=== PATIENT | female | born 1995 | race Caucasian/White ===

== ENCOUNTER 2018-10-27 15:19 | Emergency (ER) | payer MEDICAID ==
[~2018-10-27] VITALS: Ht 160 cm; Wt 57.2 kg
[2018-10-27 15:37] VITALS: Ht 160 cm; Wt 57.2 kg
--- NOTE | 2018-10-27 17:39 | ERD ---
ER Documentation Chief Complaint Chief Complaint c/o vomiting x1 dys, t. is 8 weeks HPI 23-year-old female at approximately 8 weeks by LMP 10/08/18, presents to the emergency department, complaining of 1 day with nausea and vomiting x associated with pelvic pain. The patient denies vaginal bleeding, no urinary symptoms. The patient established care at [facility]. ROS All systems reviewed and are negative except as per history of present illness. Medications Home Meds Active Scripts Acetaminophen* (Tylenol*) 325 Mg Tablet, 2 TAB PO Q8 PRN for PAIN AND OR ELEVATED TEMP, #20 TAB Prov:DHRUV CORTEZ MD 10/27/18 Metoclopramide* (Reglan*) 10 Mg Tablet, 10 MG PO TID PRN for NAUSEA AND/OR VOMITING, #12 TAB Prov:DHRUV CORTEZ MD 10/27/18 Allergies Allergies: Coded Allergies: No Known Allergy (Unverified , 10/27/18) Physical Exam Vitals Vital Signs Date Temp Pulse Resp B/P (MAP) Pulse Ox O2 O2 Flow FiO2 Time Delivery Rate 10/27/18 100.1 102 20 115/57 96 15:37 (76) Physical Exam Const: No acute distress Head: Atraumatic Eyes: Normal Conjunctiva ENT: Normal External Ears, Nose and Mouth. Neck: Full range of motion. No meningismus. Resp: Clear to auscultation bilaterally Cardio: Regular rate and rhythm, no murmurs Abd: Soft, non tender, non distended. Normal bowel sounds Skin: No petechiae or rashes Back: No midline or flank tenderness Ext: No cyanosis, or edema Neur: Awake and alert Psych: Normal Mood and Affect Result Diagram: 10/27/18 1801 10/27/18 180 Results 24 hrs Laboratory Tests Test 10/27/18 18:01 White Blood Count 7.7 10^3/ul Red Blood Count 5.01 10^6/ul Hemoglobin 12.0 g/dl Hematocrit 37.3 % Mean Corpuscular Volume 74.5 fl Mean Corpuscular Hemoglobin 24.0 pg Mean Corpuscular Hemoglobin Concent 32.2 g/dl Red Cell Distribution Width 16.6 % Platelet Count 245 10^3/UL Mean Platelet Volume 10.1 fl Immature Granulocytes % 0.500 % Neutrophils % 84.3 % Lymphocytes % 9.7 % Monocytes % 5.4 % Eosinophils % 0.0 % Basophils % 0.1 % Nucleated Red Blood Cells % 0.0 /100WBC Immature Granulocytes # 0.040 10^3/ul Neutrophils # 6.5 10^3/ul Lymphocytes # 0.8 10^3/ul Monocytes # 0.4 10^3/ul Eosinophils # 0.0 10^3/ul Basophils # 0.0 10^3/ul Nucleated Red Blood Cells # 0.0 10^3/ul Urine Color YELLOW Urine Clarity SLIGHTLY CLOUDY Urine pH 5.0 Urine Specific [place] 1.032 Urine Ketones 2+ mg/dL Urine Nitrite NEGATIVE mg/dL Urine Bilirubin NEGATIVE mg/dL Urine Urobilinogen NEGATIVE mg/dL Urine Leukocyte Esterase NEGATIVE Dorcas/ul Urine Microscopic RBC 2 /HPF Urine Microscopic WBC 4 /HPF Urine Squamous Epithelial Cells FEW /HPF Urine Mucus MANY /HPF Urine Hemoglobin NEGATIVE mg/dL Urine Glucose NEGATIVE mg/dL Urine Total Protein 1+ mg/dl Sodium Level 138 mmol/L Potassium Level 3.2 mmol/L Chloride Level 100 mmol/L Carbon Dioxide Level 23 mmol/L Anion Gap 15 Blood Urea Nitrogen 10 mg/dl Creatinine 0.44 mg/dl Est Glomerular Filtrat Rate mL/min > 60 mL/min Glucose Level 100 mg/dl Calcium Level 9.6 mg/dl Total Bilirubin 0.4 mg/dl Direct Bilirubin 0.00 mg/dl Indirect Bilirubin 0.4 mg/dl Aspartate Amino Transf (AST/SGOT) 27 IU/L Alanine Aminotransferase (ALT/SGPT) 12 IU/L Alkaline Phosphatase 69 IU/L Total Protein 8.4 g/dl Albumin 4.6 g/dl Globulin 3.80 g/dl Albumin/Globulin Ratio 1.21 Beta HCG, Quantitative 98055.0 mIU/ml Current Medications Medications Dose Sig/Reji Start Time Status Last (Trade) Ordered Route PRN Stop Time Admin Dose Reason Admin Sodium 1,000 ml @ Q1H STAT 10/27/18 DC 10/27/18 Chloride 1,000 mls/hr IV 17:46 18:09 10/27/18 18:45 10 mg ONCE ONCE 10/27/18 DC 10/27/18 Metoclopramid PO 18:00 18:09 e HCl 10/27/18 18:01 (Reglan) 650 mg ONCE ONCE 10/27/18 DC 10/27/18 Acetaminophen PO 18:00 18:09 (Tylenol 10/27/18 18:01 Tab) Patient: STEVEN GARY : 1995 Age: 23 Sex: F MR #: [id number] DOS: 10/27/18 1746 Ordering MD: DHRUV CORTEZ MD Location: [facility] Room/Bed: PROCEDURE: US OB. CLINICAL INDICATION: Abdominal pain TECHNIQUE: Transabdominal views of the pelvis are available for review. COMPARISON: No prior studies are available for comparison. FINDINGS: There is a single intrauterine gestation with the crown-rump length measuring 6.4 cm, corresponding to a gestational age of 12 weeks and 5 days. The placenta is anterior. The nuchal translucency measures 0.8 mm. The heart rate is noted at 158 bpm. The ovaries are normal. The right ovary measures 2.7 x 1.9 x 2.2 cm. The left ovary measures 3.1 x 1.4 x 1.8 cm. There is no free fluid. RPTAT: AA IMPRESSION: Single live intrauterine with an estimated gestational age of 12 weeks and 5 days. Normal nuchal translucency. .Balbir Gallagher MD, MD Date Time Electronically viewed and signed by .Balbir Gallagher MD, MD on 10/27/2018 18:25 .S/ CC: DHRUV CORTEZ MD [phone] Procedures/MDM Vital signs stable, Physical exam unremarkable. Differential diagnosis include but not limited to: Gastroenteritis, appendicitis, dehydration, hyperemesis gravidarum, UTI, anemia. Physical examination and clinical presentation most likely consistent with hyperemesis gravidarum. During the ED course the patient remained hemodynamically stable and asymptomatic, she received IV hydration and Reglan p.o. with marked improvement of the symptoms. Results and clinical impression discussed with patient who agrees with management. The patient is stable to be treated outpatient and will be discharged home with close monitoring and follow-up in 2 days with her primary physician. The patient was instructed regarding the outcomes and the potential complications like severe bleeding and . If the patient presents severe bleeding or pain, she was instructed to return to the hospital immediately. Disclaimer: Inadvertent spelling and grammatical errors are likely due to EHR/dictation software use and do not reflect on the overall quality of patient care. Also, please note that the electronic time recorded on this note does not necessarily reflect the actual time of the patient encounter. Departure Diagnosis: Primary Impression: Pelvic pain Additional Impressions: Hyperemesis Condition: Stable Additional Instructions: Thank you very much for allowing us to participate in your care. Your health and safety is our top priority at [facility]. Call your primary care doctor TOMORROW for an appointment during the next 2-4 days and bring all the information and medications prescribed. Have prescriptions filled and follow precisely the directions on the label. If the symptoms get worse and your provider is unavailable, return to the Emergency Department immediately. DHRUV CORTEZ MD Oct 27, 2018 17:39
[2018-10-27] MEDS ORDERED: SOD CHLORIDE 0.9% 1,000 ML IV STA (17:46)
[2018-10-27] MEDS ORDERED: METOCLOPRAMIDE 10 MG TAB PO ONE (18:00)
[2018-10-27] MEDS ORDERED: ACETAMINOPHEN 325 MG TAB PO ONE (18:00)
[2018-10-27] MEDS ORDERED: METO10TA92 PO (20:01)
[2018-10-27] MEDS ORDERED: ACET325T33 PO (20:01)
[2018-10-27 20:40] VITALS: BP 113/59; PULSE 82; RESP 18
== END 2018-10-27 20:41 | disposition home or self-care (01) ==
LOC: FTE 15:19
DX: O26.891 Other specified pregnancy related conditions, first trimester (principal); R10.2 Pelvic and perineal pain; Z3A.12 12 weeks gestation of pregnancy
CPT/HCPCS: 76801; 80053; 81001; 84702; 85025; J7030; Z7502; Z7610